=== PATIENT | male | born 1945 | race Caucasian/White ===

== ENCOUNTER 2021-08-31 15:29 | Observation (INO) ==
[2021-08-31 16:27] LABS: Basophils # 0.1 K/mcL (0.0-0.2); Basophils % 0.7 %; Eosinophils # 0.5 K/mcL (0.0-0.6); Eosinophils % 6.3 %; Hematocrit 37.4 % (37.5-50.1); Hemoglobin 11.9 g/dL (12.9-16.9); Immature Granulocytes % 0.4 % (0-4); Lymphocytes # 1.5 K/mcL (0.6-4.6); Lymphocytes % 19.9 %; Mean Corpuscular HGB Conc 31.8 g/dL (31.6-35.5); Mean Corpuscular Hemoglobin 30.2 pg (28.0-33.3); Mean Corpuscular Volume 94.9 fL (83.0-100.0); Monocytes # 0.8 K/mcL (0.0-1.3); Monocytes % 9.8 %; Neutrophils # 4.8 K/mcL (1.6-8.9); Platelet Count 198 K/mcL (140-400); Red Blood Count 3.94 M/mcL (4.19-5.50); Red Cell Distribution Width 14.3 % (11.5-14.5); Segmented Neutrophils % 62.9 %; White Blood Count 7.6 K/mcL (4.3-11.1)
[2021-08-31 16:35] LABS: Prothrombin Time 11.2 Seconds (9.4-12.1)
[2021-08-31 16:38] LABS: Activated Partial Thrombo Time 27.6 Seconds (26.0-36.0)
[2021-08-31 17:04] LABS: Alanine Aminotransferase 12 Units/L (7-52); Albumin 3.7 g/dL (3.5-5.7); Albumin/Globulin Ratio 1.3 (1.1-2.2); Alkaline Phosphatase 55 Units/L (34-104); Aspartate Amino Transferase 12 Units/L (13-39); BUN/Creatinine Ratio 25 (6-26); Bilirubin,Direct 0.1 mg/dL (0.0-0.2); Bilirubin,Indirect 0.2 mg/dL (0.0-1.0); Bilirubin,Total 0.3 mg/dL (0.3-1.0); Blood Urea Nitrogen 27 mg/dL (8-23); Calcium 8.5 mg/dL (8.6-10.3); Carbon Dioxide 27 mEq/L (23-29); Chloride 105 mEq/L (98-107); Globulin 2.8 g/dL (2.4-3.5); Glucose 89 mg/dL (70-105); Lipase 33 Units/L (11-82); Osmolality,Calculated 291 (280-300); Potassium 4.5 mEq/L (3.5-5.1); Sodium 138 mEq/L (136-145); Total Protein 6.5 g/dL (6.4-8.9); Troponin I < 0.03 ng/mL (< 0.04); eGFR For African Americans > 60 (> 60); eGFR For Non-African Americans > 60 (> 60)
[2021-08-31] MEDS ORDERED: Melatonin 3 MG TABLET PO PRN (17:56)
[2021-08-31] MEDS ORDERED: Naloxone 0.4 MG/ML INJ IVP PRN (17:56)
[2021-08-31] MEDS ORDERED: Ondansetron 4 MG/2 ML VIAL IVP PRN (17:56)
[2021-08-31] MEDS ORDERED: *HR* HYDROcodone/Acet 5/325 mg TABLET PO PRN (18:05)
[2021-09-01 01:28] LABS: Basophils # 0.1 K/mcL (0.0-0.2); Basophils % 0.6 %; Eosinophils # 0.6 K/mcL (0.0-0.6); Eosinophils % 7.2 %; Hematocrit 37.5 % (37.5-50.1); Hemoglobin 11.9 g/dL (12.9-16.9); Immature Granulocytes % 0.4 % (0-4); Lymphocytes # 1.7 K/mcL (0.6-4.6); Mean Corpuscular HGB Conc 31.7 g/dL (31.6-35.5); Mean Corpuscular Volume 94.5 fL (83.0-100.0); Mean Platelet Volume 9.9 fL (9.4-12.4); Monocytes # 0.8 K/mcL (0.0-1.3); Monocytes % 9.8 %; Neutrophils # 4.9 K/mcL (1.6-8.9); Platelet Count 186 K/mcL (140-400); Red Blood Count 3.97 M/mcL (4.19-5.50); Red Cell Distribution Width 14.1 % (11.5-14.5); White Blood Count 8.1 K/mcL (4.3-11.1)
[2021-09-01 02:02] LABS: Alanine Aminotransferase 10 Units/L (7-52); Albumin 3.5 g/dL (3.5-5.7); Albumin/Globulin Ratio 1.3 (1.1-2.2); Alkaline Phosphatase 52 Units/L (34-104); Aspartate Amino Transferase 14 Units/L (13-39); BUN/Creatinine Ratio 24 (6-26); Bilirubin,Total 0.3 mg/dL (0.3-1.0); Blood Urea Nitrogen 24 mg/dL (8-23); Calcium 8.7 mg/dL (8.6-10.3); Carbon Dioxide 25 mEq/L (23-29); Chloride 105 mEq/L (98-107); Chol/HDL Ratio 4.1 (0-4.9); Cholesterol 155 mg/dL (< 200); Globulin 2.7 g/dL (2.4-3.5); Glucose 87 mg/dL (70-105); HDL Cholesterol 38 mg/dL (40-59); LDL Cholesterol,Calculated 73 mg/dL (< 100); Osmolality,Calculated 289 (280-300); Potassium 4.1 mEq/L (3.5-5.1); Sodium 138 mEq/L (136-145); Total Protein 6.2 g/dL (6.4-8.9); Triglycerides 222 mg/dL (< 150); eGFR For African Americans > 60 (> 60); eGFR For Non-African Americans > 60 (> 60)
[2021-09-01 02:59] VITALS: TEMP 98.3
[2021-09-01] MEDS ORDERED: *HR* Enoxaparin 40 MG/0.4 ML SYRINGE SQ SCH (06:00)
[2021-09-01] MEDS ORDERED: Regadenoson 0.4 MG/5 ML SYRINGE IVP ONE (07:00)
[2021-09-01] MEDS ORDERED: FLUoxetine 20 MG CAPSULE PO SCH (09:00)
[2021-09-01] MEDS ORDERED: lisinopriL 10 MG TABLET PO SCH (09:00)
[2021-09-01] MEDS ORDERED: Aspirin Enteric Coated 81 MG Tablet PO SCH (09:00)
[2021-09-01 09:50] VITALS: BP 172/81; PULSE 76
[2021-09-01] MEDS ORDERED: Tiotropium 10 INH DOSE IH SCH (10:00)
[2021-09-01] MEDS ORDERED: Isovue-370 500 ML BOTTLE IVP ONE (12:13)
[2021-09-01 15:15] VITALS: O2SAT 92
== END 2021-09-01 17:38 | disposition home or self-care (01) ==
LOC: EMEROOARM 15:29 → 3BNU 15:29 → SUATTDRO 18:43 → 3BNU 19:43
PROVIDERS: ADMIT Internal Medicine; ATTEND Internal Medicine